=== PATIENT | female | born 2000 | race Caucasian/White ===

== ENCOUNTER 2023-01-07 01:46 | Inpatient (IN) | payer OTHER, SELFPAY ==
[2023-01-07] VITALS (13 sets, daily range): BP systolic 89–121; BP diastolic 50–76; PULSE 56–113; RESP 16–20; TEMP 36.1–36.7
[2023-01-07 02:57] LABS: Hematocrit 32.1 % (36.0-48.0); Hemoglobin 11.2 g/dL (12.0-16.0); Mean Corpuscular HGB Conc 34.9 g/dL (29.9-35.2); Mean Corpuscular Hemoglobin 31.5 pg (26.7-34.0); Mean Corpuscular Volume 90.2 fL (81.0-99.0); Platelet Count 198 10^3/uL (150-450); Red Blood Count 3.56 10^6/uL (4.20-5.40); Red Cell Distribution Width 12.2 % (11.0-15.0); White Blood Count 14.2 10^3/uL (4.0-11.0)
--- NOTE | 2023-01-07 03:33 | PM.OBPRCVD ---
Procedure events: Labor < 37 Weeks and Labor Augmentation Intrapartal events: Bleeding Delivery augmentation: rupture of membranes Delivery monitor: external FHT Route of delivery: Episiotomy Description: none Laceration description: none Estimated blood loss (mL): 200 Anesthesia type: None Disposition: no change Delivery date: 01/07/23 Gender: female presentation: vertex Placental delivery description: Spontaneous cord description: 3 Vessels heart rate - 1 minute: 100 bpm or Greater respiratory effort - 1 minute: Spontaneous/Strong Cry muscle tone - 1 minute: Minimal Flexion/Extension reflex response - 1 minute: Prompt Response color - 1 minute: Bluish Hands or Feet total score - 1 minute: 8 heart rate - 5 minute: 100 bpm or Greater respiratory effort - 5 minute: Spontaneous/Strong Cry muscle tone - 5 minute: Minimal Flexion/Extension reflex response - 5 minute: Prompt Response color - 5 minute: Bluish Hands or Feet total score - 5 minute: 8
--- NOTE | 2023-01-07 03:44 | PM.OBHP ---
OB - H&P: HPI History of Present Illness Chief complaint: BLEEDING, ABDOMINAL PAIN : 1 Para: 0 History of Present care: good care complications: labor Review of Systems ROS Status of ROS 10 or more systems reviewed and unremarkable except as noted in history and below Meds Home Medications and Allergies Home Medications Medication Instructions Recorded Confirmed Type methadone 97 mg PO .daily 01/07/23 01/07/23 History Allergies Allergy/AdvReac Type Severity Reaction Status Date / Time No Known Drug Allergies Allergy Verified 01/07/23 02:29 Exam Constitutional Vital Signs, click to edit/add: Vital Signs - 24 hr 01/07/23 02:30 Temperature 97.5 F L Pulse Rate 108 H Respiratory Rate 20 Blood Pressure [Right Arm] 121/59 H Oxygen Delivery Method Room Air Documenting provider has reviewed patient's vital signs: yes Common normals: no apparent distress Respiratory Common normals: normal respiratory effort and clear to auscultation bilaterally Cardio Common normals: regular rate and regular rhythm GI Common normals: Normal to inspection, nondistended, normoactive bowel sounds present Extremity Common normals: normal to inspection, no clubbing, cyanosis or edema and no calf tenderness Results Labs Labs: Short CBC 01/07/23 Range/Units 02:40 WBC 14.2 H (4.0-11.0) 10^3/uL Hgb 11.2 L (12.0-16.0) g/dL Hct 32.1 L (36.0-48.0) % Plt Count 198 (150-450) 10^3/uL OB - A/P Assessment and Plan (1) labor in third trimester: Plan iup at 32wks, labor-iv routine labs, iv abx, cont efm
--- NOTE | 2023-01-07 04:37 | PC.NURSE ---
0245- enters pt room. AROM at this time. Clear, bloody amniotic fluid obtained. Cervix assessed per . Pt cervix examined; pt cervix complete.
--- NOTE | 2023-01-07 04:40 | PC.NURSE ---
0250- returns to pt room at this time to initiate pushing. Pt bed broken down with provider in the room.
--- NOTE | 2023-01-07 04:45 | PC.NURSE ---
0313- Kaitlin Winslow RN attempts to start post-patrum pitcoin 20 units in 1000ml. IV access lost. 0323Dee Dee Carr RN starts new IV access line. IV 20G left AC obtained. IV flushed without resistance. IV Pitocin 20 units/1000ml started at 999ml/hr. RN attempts to scan bag of fluid at this time,; no scan obtained due to MAR error.
--- NOTE | 2023-01-07 05:38 | PC.NURSE ---
0341- RN assists pt to use bathroom per pt request. Pt states she needs to have a bowel movement at this time. RN assists pt to use bathroom. Pt ambulates well; denies dizziness. RN assists pt with goran-care. Pt lochia small. U/1 firm. Pt linens changed. RN offers motrin to pt at this time; pt denies pain medications at this time.
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
--- NOTE | 2023-01-07 08:53 | PC.NURSE ---
0259- NICU notified; NICU flying, ETA 1 hour.
[2023-01-07 12:26] LABS: Bilirubin Urine NEGATIVE (NEGATIVE); Blood Urine LARGE (NEGATIVE); Clarity Urine CLEAR (CLEAR); Color Urine LT. YELLOW (YELLOW); Glucose Urine UA 500 mg/dL (NEGATIVE); Ketones Urine NEGATIVE (NEGATIVE); Leukocyte Esterase Urine NEGATIVE (NEGATIVE); Nitrite Urine NEGATIVE (NEGATIVE); Protein Urine NEGATIVE (NEG/TRACE); Urobilinogen Urine 0.2 EU/dL (0.2-1.0)
[2023-01-07 12:27] LABS: Urine Microscopic Indicated YES
[2023-01-07 12:34] LABS: Bacteria Urine TRACE #/HPF (NONE SEEN); Cast Seen? NONE SEEN #/LPF (NONE SEEN); Crystals Seen? None Seen #/HPF (None Seen); Mucus Urine NONE SEEN (NONE SEEN); RBC Urine 20-50 #/HPF (0-2); Squamous Epithelial Cell Urine FEW #/LPF (NONE/RARE)
[2023-01-07 12:37] LABS: Urine Culture Indicated NO
[2023-01-07] MEDS: METHADONE HCL 10 MG TABLET 100 MG PO (14:09)
[2023-01-07 14:16] LABS: Amphetamine Screen Urine POSITIVE (NEGATIVE); Benzodiazepines Screen Urine POSITIVE (NEGATIVE); Cannabinoid Screen Urine POSITIVE (NEGATIVE); Cocaine Screen Urine NEGATIVE (NEGATIVE); Methadone Screen Urine POSITIVE (NEGATIVE); Methamphetamines Screen Urine POSITIVE (NEGATIVE); Opiate Screen Urine NEGATIVE (NEGATIVE); Phencyclidine Screen Urine NEGATIVE (NEGATIVE); Tricyclic Antidepressant Urine NEGATIVE (NEGATIVE)
[2023-01-07 14:17] LABS: Barbiturates Screen Urine NEGATIVE (NEGATIVE); Buprenorphine Screen Urine NEGATIVE (NEGATIVE); Oxycodone Screen Urine NEGATIVE (NEGATIVE)
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
[2023-01-13 12:09] LABS: Amphetamine Negative (Cutoff=500); Amphetamines Positive (.); Benzodiazepines Negative (Cutoff=300); Cannabinoid Positive (.); Carboxy THC Conf, MS, UR 16 ng/mL (Cutoff=10); Methamphetamine Positive (.); Methamphetamine Conf, MS, UR 2169 ng/mL (Cutoff=500)
== END 2023-01-07 15:00 | disposition home or self-care (01) | DRG 560 ==
PROVIDERS: Admitting Provider Obstetrics & Gynecology; PCP Obstetrics & Gynecology; Visit Provider Obstetrics & Gynecology
DX: O60.14X0 Preterm labor third trimester with preterm delivery third trimester, not applicable or unspecified (principal); O99.324 Drug use complicating childbirth; Z37.0 Single live birth; O67.8 Other intrapartum hemorrhage; O99.02 Anemia complicating childbirth; D64.9 Anemia, unspecified; F11.10 Opioid abuse, uncomplicated; O99.334 Smoking (tobacco) complicating childbirth; F17.210 Nicotine dependence, cigarettes, uncomplicated; F17.290 Nicotine dependence, other tobacco product, uncomplicated; O99.344 Other mental disorders complicating childbirth; F41.9 Anxiety disorder, unspecified; F32.A Depression, unspecified; Z3A.32 32 weeks gestation of pregnancy
CPT/HCPCS: 36415; 59050; 59410; 80307; 80326; 80346; 80349; 81003; 81015; 85025; 85027; 86850; 86900; 86901; 88307; 90471; 96365; 96366; 96367; 96372; 96375